=== PATIENT | male | born 1965 | race Native Hawaiian/Other Pacific Islander ===

== ENCOUNTER 2017-03-02 15:59 | Observation (INO) | payer BC ==
[2017-03-02] VITALS (30 sets, daily range): BP systolic 111–211; BP diastolic 62–129; PULSE 91–123; RESP 15–31; TEMP 97.5–98.2; O2SAT 89–95; Ht 188 cm; Wt 201.9 kg
[~2017-03-02] VITALS: Ht 188 cm; Wt 201.9 kg
[2017-03-02] MEDS ORDERED: NORMAL SALINE 1,000 ML IV ONE (16:12)
[2017-03-02] MEDS ORDERED: DILTIAZEM 25mg/5ml INJECTION IV ONE ×3 (16:15→17:15)
--- NOTE | 2017-03-02 16:23 | NUR ---
DR FOWLER IN
[2017-03-02 16:26] LABS: BASOPHILS % (AUTO) 0.2 % (0-2); EOSINOPHILS # (AUTO) 0.1 T/MM3 (0-0.5); EOSINOPHILS % (AUTO) 1.7 % (0-4); HCT - HEMATOCRIT 43.1 % (41-53); IMMATURE GRANULOCYTE # (AUTO) 0.01 T/MM3 (0.00-0.03); IMMATURE GRANULOCYTE % (AUTO) 0.1 % (0.0-0.5); INR 1.12 (0.76-1.04); LYMPHOCYTES # (AUTO) 1.6 T/MM3 (1-4.8); LYMPHOCYTES % (AUTO) 19.8 % (23-45); MEAN CORPUSCULAR HGB CONC(MCHC 32.5 GM/DL (31-37); MEAN CORPUSCULAR VOLUME 95.6 UM3 (80-100); MEAN PLATELET VOLUME 10.4 UM3 (9.4-12.4); MONOCYTES # (AUTO) 0.6 T/MM3 (0-0.8); MONOCYTES % (AUTO) 7.6 % (0-9.0); NEUTROPHILS #(AUTO)-ABSOLUTE 5.8 T/MM3 (1.8-7.7); NEUTROPHILS % (AUTO) 70.6 % (33-66); PROTHROMBIN TIME 12.2 SEC (9.31-12.49); RED BLOOD COUNT 4.51 M/MM3 (4.50-5.90); WBC - WHITE BLOOD COUNT 8.2 T/MM3 (4.5-11.0)
--- NOTE | 2017-03-02 16:27 | ERPDOC ---
Departure Disposition Decision Date: March 02, 2017 Disposition Decision Time: 17:10 Disposition: [address] [facility] [place] Impression Impression Impression: Primary Impression: Atrial fibrillation with RVR Severity: Moderate Condition: Improved Seen By: Physician only Referrals: Maxine BURGER MD (Family) Problems/Meds/Labs Reviewed?: Yes Medications reviewed and manag: Yes Follow up care ordered?: Yes Mental Status: Alert, Oriented HPI - Dyspnea General Chief Complaint: Dyspnea/Respdistress Stated Complaint: SHORTNESS OF AIR, HIGH BP Time Seen by Provider: 16:00 Source: patient Exam Limitations: no limitations HPI - Dyspnea Initial Comments 52yo man presents to the ER today with SOA. Pt has had dyspnea at rest for the last week. Was seen routinely by his PCM today and referred to the ER for HTN. Has never had sx like this before. Occurred At: home Onset/Timing: Rapid, Constant Duration: 1 week Severity: moderate Activities at Onset: none Prior Episodes/Possible Cause: no prior episodes Modifying Factors: IMPROVES WITH: lying down, rest, WORSE WITH: activity Associated Symptoms: shortness of breath Aspirin Treatment Today: 81 mg x 1, provided at home Hx of Similar Symptoms: No Allergies: Coded Allergies: No Known Allergies (Unverified , 03/02/17) Past History Past Medical History Pt denies signifigant PMH Review of Systems Constitutional Constitutional: fatigue Pulmonary Respiratory: dyspnea All other Systems All Other Systems: Reviewed and Negative Physical Exam General General Nourishment: well nourished, well developed, appears stated age, no acute distress, adult, obese (Morbid) General Body Habitus: well groomed Vitals and Pain First Documented Vital Signs Date Time Temp Pulse Resp B/P Pulse Ox O2 Delivery O2 Flow Rate FiO2 03/02/17 16:16 155 18 173/84 95 Room Air 03/02/17 16:21 98.8 Weight: Kilograms: Height (feet): Height (inches): Triage Pain Scale: RN VS reviewed by Provider: Yes Normal Exams: Head: Normocephalic w/o trauma Eyes: Pupils are PERRLA w/ EOMI, No scleral icterus, irritation ENMT: No facial trauma, nasal exudates, pharyngeal erythema Neck: Full range of motion, without adenopathy, JVD Lymphatic: No lymphadenopathy Musculoskeletal: No tenderness, or deformity noted Integumentary: No rashes, hives, or bruising noted Neurologic: Patient is alert, and oriented Psychiatric: Patient exhibits, appropriate attention Respiratory (brief) Respiratory: FOUND: clear all [place], equal bilaterally, symmetrical, NOT FOUND : rales, wheezes Cardiovascular (brief) Cardiac: NOT FOUND: click, gallop, murmur, pedal edema, peripheral edema, regular rate (tachy), regular rhythm (Irregularly irregular), rub Capillary Refill: <2 sec Pulses: all distal extremities, equal, strong Abdomen (brief) Abdominal Brief: FOUND: bowel normo active x4, soft, NOT FOUND: distended, hepatosplenomegaly, pulsatile mass, tender Differential Diagnoses Considering: Acute Bronchitis, Acute Respiratory Failure, Influenza, Pneumonia , Pneumothorax, Pulmonary Edema, Sinusitis, Viral Syndrome Progress Results/Orders Orders Procedure Category Date Status Time Cbc W/Auto LAB 03/02/17 Complete Diff-Reflex Manual 16:12 Bmp - Basic Metabolic LAB 03/02/17 Complete Panel 16:12 Probnp LAB 03/02/17 Complete 16:12 Troponin I W LAB 03/02/17 Complete Hemolysis Index 16:12 INR LAB 03/02/17 Complete 16:12 EKG EKG 03/02/17 Logged 16:12 Chest 1 View RAD 03/02/17 Resulted 16:12 Iv Lock (Ed Only) EDM 03/02/17 Transmitted 16:12 Normal Saline (Normal PHA 03/02/17 Complete Saline Iv) 16:12 Diltiazem (Cardizem*) PHA 03/02/17 Complete Iv Bolus (Cardizem 16:15 Enoxaparin (Lovenox) PHA 03/02/17 Complete 16:45 Diltiazem (Cardizem*) PHA 03/02/17 Complete Iv Bolus (Cardizem 17:15 Normal Saline (Ns) PHA 03/02/17 In Process W/Diltiazem 17:15 Place In Facility: ED ADM 03/02/17 Transmitted Lab Results Laboratory Tests Test 03/02/17 16:15 White Blood Count 8.2T/MM3 Red Blood Count 4.51M/MM3 Hemoglobin 14.0GM/DL Hematocrit 43.1% Mean Corpuscular Volume 95.6UM3 Mean Corpuscular Hemoglobin 31.0UUG Mean Corpuscular Hemoglobin Concent 32.5GM/DL RDW Standard Deviation 49.2FL Platelet Count 258T/MM3 Mean Platelet Volume 10.4UM3 Immature Granulocyte % (Auto) 0.1% Neutrophils (%) (Auto) 70.6% Lymphocytes (%) (Auto) 19.8% Monocytes (%) (Auto) 7.6% Eosinophils (%) (Auto) 1.7% Basophils (%) (Auto) 0.2% Absolute Immature Granulocyte (auto 0.01T/MM3 Absolute Neutrophils (auto) 5.8T/MM3 Absolute Lymphocytes (auto) 1.6T/MM3 Absolute Monocytes (auto) 0.6T/MM3 Absolute Eosinophils (auto) 0.1T/MM3 Absolute Basophils (auto) 0.0T/MM3 Prothromb Time International Ratio 1.12 Turbidity < 20 Sodium Level 145MEQ/L Potassium Level 4.3MEQ/L Chloride Level 106MEQ/L Carbon Dioxide Level 26MEQ/L Anion Gap 13MEQ/L Blood Urea Nitrogen 15.0MG/DL Creatinine 0.8MG/DL Glomerular Filtration Rate Calc 101 BUN/Creatinine Ratio 19RATIO Glucose Level 130MG/DL Calculated Osmolality 282MOSM/KG Calcium Level 9.0MG/DL Icterus Index < 2 Troponin I 0.013ng/ml EM-Hyh-W-Type Natriuretic Peptide 1270PG/ML Chemistry Specimen Hemolysis 29 Medications Current ED Medications Sodium Chloride (Normal Saline IV) 1,000 ml @ 0 mls/hr Q0M ONCE IV Last administered on 03/02/17 16:25; Start 03/02/17 at 16:12; Stop 03/02/17 at 16:14; Status DC Diltiazem HCl (Cardizem) 25 mg O ONCE IV ; Start 03/02/17 at 16:15; Stop at 16:16; Status Cancel Diltiazem HCl (Cardizem) 20 mg O ONCE IV Last administered on 03/02/17 16:26; Start 03/02/17 at 16:15; Stop 03/02/17 at 16:16; Status DC Enoxaparin Sodium (Lovenox) 120 mg O ONCE SQ Last administered on 03/02/17 16: 44; Start 03/02/17 at 16:45; Stop 03/02/17 at 16:46; Status DC EKG EKG : Rate: >100 Rhythm: atrial fibrillation [place]: normal QRS: non-specific block Intervals: normal ST/T: normal Interpreted by: signing physician Consult/PCP Consult/PCP : Physician Contacted: Dr. Elder Time Called: 16:57 Time of first response: 17:02 Type of discussion: Admit Discussion/PCP Discussion Details Admit to CCU for overnight obs; trend trop; start dilt drip. ESTEFANI FOWLER DO March 02, 2017 16:27
[2017-03-02 16:32] LABS: ANION GAP 13 MEQ/L (5-15); BUN/CREATININE RATIO 19 RATIO (6-26); CHLORIDE 106 MEQ/L (98-107); CO2 - CARBON DIOXIDE 26 MEQ/L (22-30); CREATININE 0.8 MG/DL (0.8-1.5); GLOMERULAR FILTRATION RATE 101; GLUCOSE 130 MG/DL (75-110); POTASSIUM 4.3 MEQ/L (3.6-5); SODIUM 145 MEQ/L (134-144)
[2017-03-02] MEDS ORDERED: ASPI-557 PO (16:32)
[2017-03-02] MEDS ORDERED: NAPR220T61 PO (16:32)
[2017-03-02 16:41] LABS: PROBNP 1270 PG/ML (0-175)
[2017-03-02] MEDS ORDERED: ENOXAPARIN 120 MG/0.8 ML INJECTION SQ ONE (16:45)
--- NOTE | 2017-03-02 17:00 | NUR ---
HR IMPROVED. MONITOR REMAINS AFIB
--- NOTE | 2017-03-02 17:16 | NUR ---
DR FOWLER IN
--- NOTE | 2017-03-02 17:17 | DI ---
Indication: ITS.REASON: Dyspnea, hypertension PROCEDURE: CHEST 1 VIEW: Encounter: Initial Comparison: July 08, 2011 Findings: Lungs are stable and grossly clear. No pleural effusion or pneumothorax. Cardiac silhouette is mild to moderately enlarged. Mediastinal contours are stable. Central pulmonary arteries are enlarged. Impression: 1. No pneumonia. 2. Enlarged cardiac silhouette could be due to cardiomegaly or pericardial effusion. 3. Enlarged central pulmonary arteries suggesting pulmonary artery hypertension. .
--- NOTE | 2017-03-02 17:21 | NUR ---
REPORT TO DIANA HAN
--- NOTE | 2017-03-02 17:40 | NUR ---
TRANSPORT PER CART ACCOMPANIED BY PAT RN TO CCU 1. CARE ASSUMED BY DIANA HAN
--- NOTE | 2017-03-02 17:40 | NUR ---
ADMISSION Arrives per cart from ED and transfers self to CCU bed without difficulty. Liter of NS started in ED is completely infused. Monitoring initiated.
[2017-03-02] MEDS ORDERED: PRN ORDERS MC (17:45)
[2017-03-02] MEDS ORDERED: MAG-AL + SIM LIQUID 30 ML UDC PO PRN (17:45)
[2017-03-02] MEDS ORDERED: BISACODYL 10 MG SUPPOSITORY RECTALLY PRN (17:45)
[2017-03-02] MEDS ORDERED: ONDANSETRON 4mg/2ml INJECTION IV PRN (17:45)
[2017-03-02] MEDS ORDERED: MILK OF MAGNESIA 30 ML SUSP PO PRN (17:45)
[2017-03-02] MEDS ORDERED: NITROGLYCERIN 0.4 MG SUBLINGUAL TABLET SL PRN (17:45)
[2017-03-02] MEDS ORDERED: ACETAMINOPHEN 325 MG TABLET PO PRN (17:45)
[2017-03-02] MEDS: DILTIAZEM 125 MG in NORMAL SALINE 125 ML IV SCH (17:46)
--- NOTE | 2017-03-02 17:53 | NUR ---
PHYSICIAN VISIT, HARLEY Charles at bedside viisting with patient at this time. Addendum: 03/02/17 at 1755 by DIANA PAEZ RN *visiting Diltiazem has been started at 10 ml/hr for rhythm of a fib rate in the 120's and BP 143/103. Sats 91% on room air. Call light and calling for assistance has been discussed with the patient, as well as the general CCU surroundings/monitoring and diltiazem drip: actions, side effects, what to expect.
[2017-03-02] MEDS ORDERED: CALCIUM CARBONATE 500mg Chewable TAB PO PRN (18:30)
[2017-03-02 18:34] LABS: ALBUMIN 3.7 G/DL (3.5-5.0); ALBUMIN/GLOBULIN RATIO 1.1 RATIO (1.1-2.2); ALKALINE PHOSPHATASE 64 U/L (38-126); ALT (SGPT) 59 U/L (21-72); AST (SGOT) 19 U/L (17-59); TOTAL PROTEIN 7.1 G/DL (6.3-8.2)
--- NOTE | 2017-03-02 18:59 | HPF ---
CHIEF COMPLAINT Shortness of breath with activity, elevated blood pressure. HISTORY OF PRESENT ILLNESS Mr. Resendiz is a 52-year-old gentleman who has been having shortness of breath with activities for the past week or so. He reports some recent cough and cold symptoms - his boss has been sick at work for the past couple of months with cough and cold and he feels he picked up some symptoms from him. With his cough at times he will produce green sputum which is hard to clear. He is not having pain with breathing or chest wall discomfort from his cough. He has not been having fevers or chills. Denies palpitations. Appetite has been stable. He had to miss work earlier this week secondary to his shortness of air and fatigue. Today he presents to clinic for evaluation. In clinic blood pressure is quite elevated and heart rate was rapid. He was sent to [facility] for further evaluation. In the emergency room EKG did reveal atrial fibrillation. Heart rate was 155. He was given IV Cardizem 20 mg which did help slow his heart rate down to 1-teens. Heart rate started to escalate again so he was given 25 mg of Cardizem. Chest x-ray was obtained showing no pneumonia but enlarged cardiac silhouette was present. In light of his new-onset atrial fibrillation, Dr. Elder was notified and patient was subsequently placed in outpatient observation status at [facility] CCU for further evaluation and treatment. PAST MEDICAL HISTORY Hypertension. Osteoarthritis. ALLERGIES No known drug allergies. MEDICATIONS Aspirin 81 mg daily. Naprosyn 220 mg with breakfast. SOCIAL HISTORY Patient is a gentleman who resides independently with two dogs. He is a nonsmoker. Rarely he will use alcohol. He works at [employer] in [place] - is very active at work. He sees Dr. Jamil for primary care. FAMILY HISTORY Mother has arthritis and has had knee replacements. She has also had diabetes and hypertension. Father of "old age." He has a brother with arthritis and knee replacements who also has had hypothyroidism. Sister had lung cancer - she was treated for cancer. She was quite obese and did have type 2 diabetes mellitus. Since weight reduction her blood sugars have improved. REVIEW OF SYSTEMS As above. GENERAL: Denies fevers, chills. Does note increased fatigue. HEENT: Vision and hearing are stable. Denies sinus pressure, congestion or drainage. Denies mouth pain. RESPIRATORY: As above. Notes cough with green sputum. Denies pain with breathing. Does note shortness of breath, worse with activities. CARDIOVASCULAR: Denies chest pressure, pain, heaviness, palpitations or cardiac irregularity. Denies neck or arm pain. Denies increased lower extremity edema. GI: Appetite stable. Denies nausea or vomiting. He does note occasional acid reflux, worse at night when he is sleeping. Bowels are stable. : Denies urinary pain, burning or blood. Does note nocturia. He reports his stream is normal and good. NEUROLOGIC: Denies unilateral weakness, numbness or slurred speech. PSYCHIATRIC: Mood is stable. SKIN: Denies new rashes or lesions. Notes chronic rash of lower extremities from a prior insect bite. ENDOCRINE: Notes fatigue. Denies excessive thirst or urination. Remainder of 10-point review of systems is discussed and negative. PHYSICAL EXAMINATION VITAL SIGNS: Height 74 inches, weight 214.4 kg. BMI 60.7. Temperature 98.8, pulse 115/ irregular, respiratory rate 18/ unlabored. Blood pressure 173/84. 95% room air saturation. GENERAL: Well-developed, well-nourished, obese gentleman who is awake and alert. He interacts appropriately. HEENT: NC/AT. PERRLA. No scleral icterus. EOMI. Mucous membranes moist. NECK: Supple without tracheal deviation or nuchal rigidity. LUNGS: Decreased breath sounds bilaterally. I am not appreciating crackles or wheeze. He breathes comfortably without distress. CARDIOVASCULAR: Irregularly irregular with rate in the low 100s. ABDOMEN: Soft, obese, nontender, nondistended. Bowel sounds are present. EXTREMITIES: No clubbing or cyanosis. +1 to 2 lower extremity edema is noted. NEUROLOGIC: Patient is awake and alert. Cranial nerves II-XII appear grossly intact. I am not appreciating focal deficits. PSYCHIATRIC: Patient is awake, alert and oriented. Thoughts are linear. He is not agitated or restless. SKIN: Warm and dry. LABORATORY White blood count is 8.2 with hemoglobin 14.0, hematocrit 43.1, MCV 95.6 and platelets 258,000. Serum sodium is 145, potassium 4.3, chloride 106, CO2 26, BUN 15 with creatinine 0.8, GFR 101 and blood glucose 130. Troponin I is 0.013. ProBNP is 1270. INR is 1.12. ASSESSMENT 1. New-onset atrial fibrillation with rapid ventricular rate. 2. Dyspnea with exertion - suspect secondary to atrial fibrillation with RVR, possible secondary to body habitus. 3. Hypernatremia (present on admission). 4. Hyperglycemia (present on admission). 5. Uncontrolled hypertension. 6. Osteoarthritis. 7. Intermittent acid reflux. 8. Morbid obesity with BMI 60.7. PLAN 1. Will place patient in outpatient observation status at [facility] CCU under the care of Dr. Elder. 2. Initiate Cardizem drip to help with heart rate control. 3. Start Lovenox 1 mg/kg subcutaneously b.i.d. for anticoagulation. 4. Consult with Dr. Zepeda for cardiac evaluation and treatment options for his atrial fibrillation. 5. Start Mucinex DM b.i.d. to help minimize cough and bronchial symptoms. 6. Initiate Protonix 40 mg p.o. daily for GI protection as well as for his acid reflux. He may have Tums as needed. 7. P.R.N. medications are okayed. 8. Check TSH in light of fatigue and atrial fibrillation. Additionally will check liver enzymes for completeness. 9. Recheck fasting BMP in a.m. to reassess blood sugar. Will also monitor his serum sodium. CBC will be rechecked in a.m. secondary to Lovenox use. 10. The patient will be FULL CODE as per his request. 11. Patient's care will be returned to Dr. Jamil at time of discharge from [facility]. SADAF
[2017-03-02] MEDS: PANTOPRAZOLE 40 MG TABLET PO SCH (19:10)
--- NOTE | 2017-03-02 19:20 | NUR ---
TRANSITION OF CARE Care transferred to RAFAEL Renteria RN after report.
[2017-03-02] MEDS: GUAIFENESIN DM 600mg/30mg TABLET PO SCH (20:58)
[2017-03-02] MEDS: ENOXAPARIN 120 MG/0.8 ML INJECTION SQ SCH (20:59)
--- NOTE | 2017-03-02 21:47 | NUR ---
HTN/ Cardizem Drip Notified Dr. Hill about patients BP being 180-200s systolic. PRN 10mg Hydralazine was ordered and administered. Cardizem drip was increased to 15 mls/hr at 2100 to keep HR below 100 bpm.
[2017-03-03] VITALS (81 sets, daily range): BP systolic 113–223; BP diastolic 59–135; PULSE 78–139; RESP 14–86; TEMP 97.2–100.1; O2SAT 88–98
[2017-03-03] MEDS: DILTIAZEM 125 MG in NORMAL SALINE 125 ML IV SCH ×2 (00:49→08:17)
--- NOTE | 2017-03-03 02:28 | NUR ---
HTN Patient continues to have BP in the 180-200s systolic even after increasing dose of Hydralazine to 20mg. Notified Dr. Hill and received an order to increase Cardizem to 20 mg/hr.
[2017-03-03] MEDS ORDERED: ENOXAPARIN 120 MG/0.8 ML INJECTION SQ SCH (05:00)
--- NOTE | 2017-03-03 06:00 | NUR ---
Shift Summary Patient has slept off and on during the night. No pain, nausea reported and only SOA reported during activities. HR has been in the 90-100s AFib throughout the night. Cardizem drip rate is currently 20 mg/hr to keep HR down and also help with lower BP. BP has been in the 170s-200s systolic with the occasion lower BP. A total of 60mg of Hydralazine was given to help control BP with little to no effect. Patient remains of RA and temp is stable. Lungs sound clear, but patient does breath heavy upon light movement. Pulse are palpated throughout. Output has been adequate and urine was orange and cloudy. Patient has had greater than 800cc of water during the night.
[2017-03-03 06:11] LABS: BASOPHILS % (AUTO) 0.1 % (0-2); EOSINOPHILS # (AUTO) 0.2 T/MM3 (0-0.5); EOSINOPHILS % (AUTO) 1.8 % (0-4); HCT - HEMATOCRIT 40.5 % (41-53); IMMATURE GRANULOCYTE # (AUTO) 0.01 T/MM3 (0.00-0.03); IMMATURE GRANULOCYTE % (AUTO) 0.1 % (0.0-0.5); LYMPHOCYTES # (AUTO) 1.6 T/MM3 (1-4.8); LYMPHOCYTES % (AUTO) 18.9 % (23-45); MEAN CORPUSCULAR HGB 30.8 UUG (26-34); MEAN CORPUSCULAR HGB CONC(MCHC 32.1 GM/DL (31-37); MEAN PLATELET VOLUME 10.8 UM3 (9.4-12.4); MONOCYTES # (AUTO) 0.7 T/MM3 (0-0.8); MONOCYTES % (AUTO) 7.9 % (0-9.0); NEUTROPHILS % (AUTO) 71.2 % (33-66); RED BLOOD COUNT 4.22 M/MM3 (4.50-5.90); WBC - WHITE BLOOD COUNT 8.5 T/MM3 (4.5-11.0)
[2017-03-03 06:22] LABS: ANION GAP 12 MEQ/L (5-15); BUN/CREATININE RATIO 14 RATIO (6-26); CALCIUM 8.7 MG/DL (8.4-10.2); CHLORIDE 105 MEQ/L (98-107); CO2 - CARBON DIOXIDE 28 MEQ/L (22-30); CREATININE 0.8 MG/DL (0.8-1.5); GLOMERULAR FILTRATION RATE 101; GLUCOSE 111 MG/DL (75-110); POTASSIUM 3.9 MEQ/L (3.6-5); SODIUM 145 MEQ/L (134-144)
[2017-03-03] MEDS: PANTOPRAZOLE 40 MG TABLET PO SCH (06:28)
--- NOTE | 2017-03-03 07:38 | NUR ---
B/P AND HR PT'S B/P THIS AM WAS 208/104. PRN HYDRALAZINE GIVEN, B/P CAME DOWN TO 113/81 AND HEART RATE REMAINED THE SAME AT 100-130. PT IS IN AFIB WITH RVR AND OCCASIONAL PVC.
[2017-03-03] MEDS: FUROSEMIDE 40 MG/4 ML INJECTION IV SCH ×2 (09:08→18:10)
[2017-03-03] MEDS: GUAIFENESIN DM 600mg/30mg TABLET PO SCH ×2 (09:08→20:54)
[2017-03-03] MEDS: LABETALOL 100 MG TABLET PO SCH ×2 (09:08→20:55)
[2017-03-03] MEDS: ENOXAPARIN 120 MG/0.8 ML INJECTION SQ SCH (09:08)
[2017-03-03] MEDS ORDERED: BISACODYL 5 MG E.C. TABLET PO PRN (09:45)
[2017-03-03] MEDS ORDERED: BISACODYL 10 MG SUPPOSITORY RECTALLY PRN (09:45)
[2017-03-03] MEDS ORDERED: NITROGLYCERIN 0.4 MG SUBLINGUAL TABLET SL PRN (09:45)
[2017-03-03] MEDS ORDERED: ACETAMINOPHEN 325 MG TABLET PO PRN (09:45)
[2017-03-03] MEDS ORDERED: LORAZEPAM 1 MG TABLET PO PRN (09:45)
[2017-03-03] MEDS ORDERED: MILK OF MAGNESIA 30 ML SUSP PO PRN (09:45)
[2017-03-03] MEDS ORDERED: LORAZEPAM 2 MG/ML INJECTION IV PRN (09:45)
[2017-03-03] MEDS ORDERED: PROMETHAZINE 25 MG INJECTION IV PRN (09:45)
[2017-03-03] MEDS ORDERED: METOCLOPRAMIDE 10mg/2ml INJECTION IV PRN (09:45)
[2017-03-03] MEDS ORDERED: MAG-AL + SIM LIQUID 30 ML UDC PO PRN (09:45)
--- NOTE | 2017-03-03 09:56 | CONSPD ---
KYRA CLARK LEGAL CASHIER 03/03/17 0916: Consultation Info Date DATE: 03/03/17 TIME: 09:10 Date of Consultation: March 02, 2017 Attending Physician: Kolton Elder MD Reason for Consultation: New onset A Fib RVR HPI - Adult Date DATE: 03/03/17 TIME: 09:10 General Date of Admission Date of Admission: March 02, 2017 at 17:07 History of Present Illness Waqar is a 52-year-old male who has been having shortness of breath with activities for the past week or so. He reports some recent cough and cold symptoms - his boss has been sick at work for the past couple of months with cough and cold and he feels he picked up some symptoms from him. With his cough at times he will produce green sputum which is hard to clear. He is not having pain with breathing or chest wall discomfort from his cough. He has not been having fevers or chills. Denies palpitations. Appetite has been stable. He had to miss work earlier this week secondary to his shortness of air and fatigue. Today he presents to clinic for evaluation. In clinic blood pressure is quite elevated and heart rate was rapid. He was sent to [facility] for further evaluation. In the ED, EKG did reveal atrial fibrillation. Heart rate was 155. He was given IV Cardizem 20 mg which did help slow his heart rate down to 1-teens. Heart rate started to escalate again so he was given 25 mg of Cardizem. Chest x-ray was obtained showing no pneumonia but enlarged cardiac silhouette was present. In light of his new-onset atrial fibrillation, Dr. Elder was notified and patient was subsequently placed in outpatient observation status at [facility] CCU for further evaluation and treatment. Dr. Lu examined the patient in his room in CCU this morning and plans to keep NPO for KISHA/DCCV this afternoon. Past Medical History Past Medical History Metabolic: hypertension Musculoskeletal: osteoarthritis Current Medications Home Meds Active Scripts Potassium Chloride (Klor-Con M20) 20 Meq Tablet, 20 MEQ PO BIDWM, #60 TAB Prov:KOLTON ELDER MD 03/04/17 Guaifenesin/Dextromethorphan (Mucinex Dm ER 600-30 mg Tablet) 1 Each Tab.er.12h , 1 TAB PO BID Y for COUGH/CONGESTION, #1 BOX Prov:KOLTON ELDER MD 03/04/17 Furosemide (Furosemide) 40 Mg Tablet, 40 MG PO BID., #40 TAB 40mg am and afternoon for 7 days, then decreasea to once a day. Prov:KOLTON ELDER MD 03/04/17 Lisinopril (Lisinopril) 20 Mg Tablet, 20 MG PO DAILY for HYPERTENSION, #30 TAB Prov:KOLTON ELDER MD 03/04/17 Amiodarone HCl (Pacerone) 200 Mg Tablet, 200 MG PO DAILY for Afib, #30 TAB Prov:KOLTON ELDER MD 03/04/17 Amiodarone HCl (Amiodarone HCl) 400 Mg Tablet, 400 MG PO BID for Afib, #14 TAB Prov:KOLTON ELDER MD 03/04/17 Labetalol HCl (Labetalol HCl) 200 Mg Tablet, 200 MG PO BID for Afib/HTN, #60 TAB Prov:KOLTON ELDER MD 03/04/17 Rivaroxaban (Xarelto) 20 Mg Tablet, 20 MG PO WS for Afib, #30 TAB Prov:KOLTON ELDER MD 03/04/17 Discontinued Reported Medications Aspirin (Aspir 81) 81 Mg Tablet.dr, 1 TAB PO DAILY, #30 TAB 5 Refills 03/02/17 Naproxen Sodium (Aleve) 220 Mg Tablet, 220 MG PO WB for PAIN, TAB Take 1 tablet, by mouth, daily with breakfast. 03/02/17 Allergies: Coded Allergies: No Known Allergies (Unverified , 03/02/17) Family History FOUND: cancer (lung-sister), diabetes, hypertension (mother), hypothyroidsim ( brother) Vaccines NONE No Social History Smoking Status: Never smoker Alcohol Intake: occasionally Marital Status: Current Occupational Status: employed Advance Directives: No DPOA for Healthcare Only Review of Systems Constitutional: REPORTS: fatigue, DENIES: chills, dizziness, fever, syncope, weakness Eyes Vision: DENIES: blurring ENMT Hearing: DENIES: tinnitus Balance: DENIES: vertigo Sinuses: NOT FOUND: rhinorrhea Mouth/Throat: DENIES: sore throat Cardiovascular dyspnea on exertion, DENIES: chest pain, murmur, orthopnea, paroxysmal nocturnal dysp Rhythm/Rate: DENIES: irregular beat, palpitations, tachycardia Vascular: DENIES: pedal edema Pulmonary Respiratory: cough, dyspnea GI Upper Abdomen: DENIES: nausea, vomiting Lower Abdomen: DENIES: blood in stool, diarrhea General: DENIES: dysuria Musculoskeletal General: DENIES: weakness Integumentary Skin: DENIES: rash, sores Neurological General: weakness, DENIES: headache, numbness, seizures, syncope All Other Systems All Other Systems: Reviewed (remainder of 10-point ROS Neg.) Physical Exam General General Nourishment: well nourished, well developed, obese, apparent age Vital Signs Vital Signs Date Time Temp Pulse Resp B/P Pulse Ox O2 Delivery O2 Flow Rate FiO2 03/03/17 07:52 130 20 03/03/17 07:37 113/81 03/03/17 07:36 98.8 93 Room Air Height (Feet): 6 Height (Inches): 2.00 Telemetry Rhythm: Atrial Fibrillation ENMT Brief: FOUND: mucosa moist Neck Brief: NOT FOUND: JVD, carotid bruits Respiratory Brief: FOUND: clear all newell, equal bilaterally, NOT FOUND: rales , wheezes Cardiovascular (brief) Cardiac Brief: FOUND: regular rate, regular rhythm, NOT FOUND: click, gallop, murmur, pedal edema Abdomen (brief) Abdominal Brief: FOUND: BS normo active x4, soft, NOT FOUND: tender Integumentary (brief) Integumentary Brief: FOUND: dry, pink, warm Neurologic RN Documented GCS Eye Opening: Verbal: Motor: Total: Psychiatric (brief) FOUND: alert, attentive, normal affect, oriented Laboratory Laboratory Tests Test 03/02/17 16:15 03/02/17 22:22 03/03/17 05:48 White Blood Count 8.2T/MM3 8.5T/MM3 Red Blood Count 4.51M/MM3 4.22M/MM3 Hemoglobin 14.0GM/DL 13.0GM/DL Hematocrit 43.1% 40.5% Mean Corpuscular Volume 95.6UM3 96.0UM3 Mean Corpuscular Hemoglobin 31.0UUG 30.8UUG Mean Corpuscular Hemoglobin Concent 32.5GM/DL 32.1GM/DL RDW Standard Deviation 49.2FL 48.7FL Platelet Count 258T/MM3 228T/MM3 Mean Platelet Volume 10.4UM3 10.8UM3 Immature Granulocyte % (Auto) 0.1% 0.1% Neutrophils (%) (Auto) 70.6% 71.2% Lymphocytes (%) (Auto) 19.8% 18.9% Monocytes (%) (Auto) 7.6% 7.9% Eosinophils (%) (Auto) 1.7% 1.8% Basophils (%) (Auto) 0.2% 0.1% Absolute Immature Granulocyte (auto 0.01T/MM3 0.01T/MM3 Absolute Neutrophils (auto) 5.8T/MM3 6.0T/MM3 Absolute Lymphocytes (auto) 1.6T/MM3 1.6T/MM3 Absolute Monocytes (auto) 0.6T/MM3 0.7T/MM3 Absolute Eosinophils (auto) 0.1T/MM3 0.2T/MM3 Absolute Basophils (auto) 0.0T/MM3 0.0T/MM3 Prothromb Time International Ratio 1.12 Turbidity < 20 < 20 Sodium Level 145MEQ/L 145MEQ/L Potassium Level 4.3MEQ/L 3.9MEQ/L Chloride Level 106MEQ/L 105MEQ/L Carbon Dioxide Level 26MEQ/L 28MEQ/L Anion Gap 13MEQ/L 12MEQ/L Blood Urea Nitrogen 15.0MG/DL 11.0MG/DL Creatinine 0.8MG/DL 0.8MG/DL Glomerular Filtration Rate Calc 101 101 BUN/Creatinine Ratio 19RATIO 14RATIO Glucose Level 130MG/DL 111MG/DL Calculated Osmolality 282MOSM/KG 279MOSM/KG Calcium Level 9.0MG/DL 8.7MG/DL Total Bilirubin 1.60MG/DL Conjugated Bilirubin 0.00MG/DL Unconjugated Bilirubin 1.00MG/DL Icterus Index < 2 < 2 Aspartate Amino Transf (AST/SGOT) 19U/L Alanine Aminotransferase (ALT/SGPT) 59U/L Alkaline Phosphatase 64U/L Troponin I 0.013ng/ml 0.014ng/ml 0.012ng/ml LZ-Xtx-I-Type Natriuretic Peptide 1270PG/ML Total Protein 7.1G/DL Albumin 3.7G/DL Globulin 3.4G/DL Albumin/Globulin Ratio 1.1RATIO Thyroid Stimulating Hormone (TSH) 2.90MIU/L Chemistry Specimen Hemolysis 29 < 15 < 15 Laboratory Tests Test 03/02/17 16:15 03/02/17 22:22 03/03/17 05:48 White Blood Count 8.2T/MM3 8.5T/MM3 Red Blood Count 4.51M/MM3 4.22M/MM3 Hemoglobin 14.0GM/DL 13.0GM/DL Hematocrit 43.1% 40.5% Mean Corpuscular Volume 95.6UM3 96.0UM3 Mean Corpuscular Hemoglobin 31.0UUG 30.8UUG Mean Corpuscular Hemoglobin Concent 32.5GM/DL 32.1GM/DL RDW Standard Deviation 49.2FL 48.7FL Platelet Count 258T/MM3 228T/MM3 Mean Platelet Volume 10.4UM3 10.8UM3 Immature Granulocyte % (Auto) 0.1% 0.1% Neutrophils (%) (Auto) 70.6% 71.2% Lymphocytes (%) (Auto) 19.8% 18.9% Monocytes (%) (Auto) 7.6% 7.9% Eosinophils (%) (Auto) 1.7% 1.8% Basophils (%) (Auto) 0.2% 0.1% Absolute Immature Granulocyte (auto 0.01T/MM3 0.01T/MM3 Absolute Neutrophils (auto) 5.8T/MM3 6.0T/MM3 Absolute Lymphocytes (auto) 1.6T/MM3 1.6T/MM3 Absolute Monocytes (auto) 0.6T/MM3 0.7T/MM3 Absolute Eosinophils (auto) 0.1T/MM3 0.2T/MM3 Absolute Basophils (auto) 0.0T/MM3 0.0T/MM3 Prothromb Time International Ratio 1.12 Turbidity < 20 < 20 Sodium Level 145MEQ/L 145MEQ/L Potassium Level 4.3MEQ/L 3.9MEQ/L Chloride Level 106MEQ/L 105MEQ/L Carbon Dioxide Level 26MEQ/L 28MEQ/L Anion Gap 13MEQ/L 12MEQ/L Blood Urea Nitrogen 15.0MG/DL 11.0MG/DL Creatinine 0.8MG/DL 0.8MG/DL Glomerular Filtration Rate Calc 101 101 BUN/Creatinine Ratio 19RATIO 14RATIO Glucose Level 130MG/DL 111MG/DL Calculated Osmolality 282MOSM/KG 279MOSM/KG Calcium Level 9.0MG/DL 8.7MG/DL Total Bilirubin 1.60MG/DL Conjugated Bilirubin 0.00MG/DL Unconjugated Bilirubin 1.00MG/DL Icterus Index < 2 < 2 Aspartate Amino Transf (AST/SGOT) 19U/L Alanine Aminotransferase (ALT/SGPT) 59U/L Alkaline Phosphatase 64U/L Troponin I 0.013ng/ml 0.014ng/ml 0.012ng/ml ET-Vax-M-Type Natriuretic Peptide 1270PG/ML Total Protein 7.1G/DL Albumin 3.7G/DL Globulin 3.4G/DL Albumin/Globulin Ratio 1.1RATIO Thyroid Stimulating Hormone (TSH) 2.90MIU/L Chemistry Specimen Hemolysis 29 < 15 < 15 EKG A Fib RVR Radiology DATE OF EXAM: 03/02/17 ORDERING DOCTOR: ESTEFNAI FOWLER DO TYPE OF EXAM: CHEST 1 VIEW REASON FOR EXAM: CP Indication: ITS.REASON: Dyspnea, hypertension PROCEDURE: CHEST 1 VIEW: Encounter: Initial Comparison: July 08, 2011 Findings: Lungs are stable and grossly clear. No pleural effusion or pneumothorax. Cardiac silhouette is mild to moderately enlarged. Mediastinal contours are stable. Central pulmonary arteries are enlarged. Impression: 1. No pneumonia. 2. Enlarged cardiac silhouette could be due to cardiomegaly or pericardial effusion. 3. Enlarged central pulmonary arteries suggesting pulmonary artery hypertension. Impression/Recommendation Problems: (1) Atrial fibrillation with RVR Status: Acute Assessment & Plan: NPO for KISHA/ DCCV this afternoon. Check Mag, TSH normal. Start Labetalol 200mg BID, Stop Cardizem 1 hour after Labetalol is given. Echo report pending. (2) Essential (primary) hypertension Status: Chronic Assessment & Plan: Continue Hydralazine for BP PRN. Lasix 40mg IV Q8H with K+ 20meq TID. (3) Osteoarthritis Status: Chronic Assessment & Plan: Regular strength Tylenol PRN Recommendation A Fib RVR: NPO for KISHA/ DCCV this afternoon. Check Mag, TSH normal. Start Labetalol 200mg BID, Stop Cardizem 1 hour after Labetalol is given. Echo report pending. HTN:Continue Hydralazine for BP PRN. Lasix 40mg IV Q8H with K+ 20meq TID. Thank vivian brown for allowing us to participate in this patient's care. BETHANIE LU MD 03/10/17 1009: Past Medical History Current Medications Home Meds Active Scripts Potassium Chloride (Klor-Con M20) 20 Meq Tablet, 20 MEQ PO BIDWM, #60 TAB Prov:KOLTON ELDER MD 03/04/17 Guaifenesin/Dextromethorphan (Mucinex Dm ER 600-30 mg Tablet) 1 Each Tab.er.12h , 1 TAB PO BID Y for COUGH/CONGESTION, #1 BOX Prov:KOLTON ELDER MD 03/04/17 Furosemide (Furosemide) 40 Mg Tablet, 40 MG PO BID., #40 TAB 40mg am and afternoon for 7 days, then decreasea to once a day. Prov:KOLTON ELDER MD 03/04/17 Lisinopril (Lisinopril) 20 Mg Tablet, 20 MG PO DAILY for HYPERTENSION, #30 TAB Prov:KOLTON ELDER MD 03/04/17 Amiodarone HCl (Pacerone) 200 Mg Tablet, 200 MG PO DAILY for Afib, #30 TAB Prov:KOLTON ELDER MD 03/04/17 Amiodarone HCl (Amiodarone HCl) 400 Mg Tablet, 400 MG PO BID for Afib, #14 TAB Prov:KOLTON ELDER MD 03/04/17 Labetalol HCl (Labetalol HCl) 200 Mg Tablet, 200 MG PO BID for Afib/HTN, #60 TAB Prov:KOLTON ELDER MD 03/04/17 Rivaroxaban (Xarelto) 20 Mg Tablet, 20 MG PO WS for Afib, #30 TAB Prov:KOLTON ELDER MD 03/04/17 Discontinued Reported Medications Aspirin (Aspir 81) 81 Mg Tablet.dr, 1 TAB PO DAILY, #30 TAB 5 Refills 03/02/17 Naproxen Sodium (Aleve) 220 Mg Tablet, 220 MG PO WB for PAIN, TAB Take 1 tablet, by mouth, daily with breakfast. 03/02/17 Allergies: Coded Allergies: No Known Allergies (Unverified , 03/02/17) Impression/Recommendation Recommendation After examining the patient I agree with the above assessment. I am involved in the formulation of the patient's plan of care. KYRA CLARK APRN March 03, 2017 09:16 BETHANIE LU MD March 10, 2017 10:09
[2017-03-03] MEDS: POTASSIUM CHLORIDE 20 MEQ TABLET PO SCH ×3 (10:07→18:10)
--- NOTE | 2017-03-03 10:24 | NUR ---
MARKO ZHU VISITED PT. CM EXPLAINED ROLE AND PROVIDED CONTACT INFORMATION. PT PLANS TO RETURN HOME POST STAY AT [facility] [place] [facility] [place]. PT DENIES NEEDS. PT IS AWARE TO CONTACT CM IF NEEDS ARISE.
[2017-03-03] MEDS ORDERED: AMIODARONE 150 MG in NORMAL SALINE 100 ML IV ONE (13:15)
[2017-03-03] MEDS ORDERED: RIVAROXABAN 20 MG TABLET PO SCH (13:15)
[2017-03-03] MEDS: AMIODARONE 200 MG TABLET PO SCH ×2 (13:59→20:55)
--- NOTE | 2017-03-03 16:09 | PNPDOC ---
Subjective Date DATE: 03/03/17 TIME: 15:41 Subjective F/U: Afib with RVR Doing well this afternoon. Tolerated KISHA/Cardioversion. No chest pain. Throat slightly sore from KISHA. Breathing well-not SOA, but not up much post cardioversion. No cough. Denies nausea or ab pain. Objective Vital Signs Vital signs Vital Signs Date Time Temp Pulse Resp B/P Pulse Ox O2 Delivery O2 Flow Rate FiO2 03/03/17 14:40 88 22 190/107 95 Room Air 03/03/17 13:40 2.00 03/03/17 07:36 98.8 Telemetry Rhythm: Atrial Fibrillation Height (Feet): 6 Height (Inches): 2.00 Weight (Kilograms): 217.000 General General Appearance: Alert, Obese, Orientated x 3, Well Nourished, Well Developed, Cooperative, Looks Stated Age Eyes (Brief) Eyes: FOUND: EOMI, PERRL, NOT FOUND: scleral icterus ENMT (Brief) ENMT: FOUND: hearing intact, mucosa moist Neck (Brief) Neck: FOUND: midline, NOT FOUND: nuchal rigidity, spasm Respiratory (Brief) Respiratory: FOUND: clear all newell, equal bilaterally, NOT FOUND: rales, wheezes Cardiovascular (Brief) Cardiac: FOUND: regular rate, regular rhythm Abdomen (Brief) Abdominal: FOUND: BS normo active x4, soft, NOT FOUND: distended, tender Extremities (Brief) Extremity : Side: Bilateral Extremity: leg Extremity Finding: FOUND: edema Musculoskeletal (Brief) Musculoskeletal: FOUND: extremities move equally, NOT FOUND: deformity, loss of motion, spasm, tenderness Neurologic (Brief) Neurological: FOUND: cranial 2-12 intact, motor (Intact ) Psychiatric (Brief) Psychiatric: FOUND: alert, attentive, normal affect, oriented Laboratory Laboratory Laboratory Tests 03/02/17 16:15 03/03/17 05:48 Laboratory Tests 03/02/17 16:15 03/03/17 05:48 Assessment & Plan Problems: (1) Atrial fibrillation with RVR Status: Acute Assessment & Plan: 03/03 KISHA/Cardioversion (2) Dyspnea on exertion Status: Acute (3) Hyperglycemia Status: Acute (4) Essential (primary) hypertension Status: Chronic (5) Osteoarthritis Status: Chronic Qualifiers: Osteoarthritis location: multiple joints Osteoarthritis type: primary Qualified Codes: M15.0 - Primary generalized (osteo)arthritis (6) Morbid obesity Status: Chronic Qualifiers: Obesity type: due to excess calories Qualified Codes: E66.01 - Morbid ( severe) obesity due to excess calories Plan/Intensity of Service Successful KISHA/Cardioversion - Amiodarone start to help maintain NSR. Xarelto started for anticoagulation - Lovenox stopped. Home ASA not restarted. Lasix initiated to help motivate fluids. Will continue monitoring on tele due to potential for arrhythmias due to amiodarone. Case discussed with CM and Cardiology. DVT Prophylaxis: Xarelto Code Status Full Code Hospital Course Summary Disclaimer The hospital course summary below is not to be considered part of the above Progress Note. Hospital Course Summary 03/[address] patient in outpatient observation status at [facility] CCU under the care of Dr. Elder. Initiate Cardizem drip to help with heart rate control. Start Lovenox 1 mg/kg subcutaneously b.i.d. for anticoagulation. Consult with Dr. Zepeda for cardiac evaluation and treatment options for his atrial fibrillation. Start Mucinex DM b.i.d. to help minimize cough and bronchial symptoms. Initiate Protonix 40 mg p.o. daily for GI protection as well as for his acid reflux. He may have Tums as needed. P.R.N. medications are okayed. Check TSH in light of fatigue and atrial fibrillation. Additionally will check liver enzymes for completeness. Recheck fasting BMP in a.m. to reassess blood sugar. Will also monitor his serum sodium. CBC will be rechecked in a.m. secondary to Lovenox use. The patient will be FULL CODE as per his request. Patient's care will be returned to Dr. Jamil at time of discharge from [facility]. / Doing well this afternoon. Tolerated KISHA/Cardioversion. No chest pain. Throat slightly sore from KISHA. Breathing well-not SOA, but not up much post cardioversion. No cough. Denies nausea or ab pain. Successful KISHA/Cardioversion - Amiodarone start to help maintain NSR. Xarelto started for anticoagulation - Lovenox stopped. Home ASA not restarted. Lasix initiated to help motivate fluids. Will continue monitoring on tele due to potential for arrhythmias due to amiodarone. JUAN MIGUEL ELDER MD March 03, 2017 15:45
--- NOTE | 2017-03-03 17:42 | NUR ---
CARDIOVERSION/SHIFT PT HAS BEEN PLEASANT AND COOPERATIVE ALL SHIFT. PT IS A&OX3, UP WITH NO ASSIST, LOW FALL. PT DENIES PAIN, N/V AND SOA. PT IS ON ROOM AIR. PT HAS HAD MULTIPLE DOSES OF PRN HYDRALAZINE FOR ELEVATED BP. SEE eMAR. PT HAD A KISHA AND CARDIOVERSION THIS SHIFT. GAVE PT 10 OF VERSED AND 75 OF FENTANYL THROUGHOUT PROCEDURE. ONE SHOCK AT 360J AND PT RETURNED TO SINUS RHYTHM. PT IS FULLY AWAKE, EATING AND DRINKING, AMBULATING TO BATHROOM AND DENIES PAIN. SKIN WNL WHERE PATCHES WERE. PT REPORTS HE DOESN'T REMEMBER THE PROCEDURE. NO OTHER CHANGES. PT RESTING IN BED AT THIS TIME.
[2017-03-03] MEDS ORDERED: FENTANYL 100mcg/2ml INJECTION IV ONE (17:53)
[2017-03-03] MEDS ORDERED: MIDAZOLAM 2mg/2ml INJECTION IV ONE (17:53)
[2017-03-03] MEDS ORDERED: LISINOPRIL 20 MG TABLET PO ONE (18:45)
--- NOTE | 2017-03-03 19:48 | TEEF ---
DATE OF PROCEDURE March 03, 2017 This is a 52-year-old gentleman who was admitted with symptomatic atrial fibrillation and congestive heart failure. The atrial fibrillation is of unknown duration and he was referred for further evaluation by transesophageal echocardiogram and possible cardioversion. Informed consent was obtained after explaining the procedure and the potential risks to the patient who agreed to proceed with the procedure. PROCEDURE 1. Transesophageal echocardiogram. 2. DC cardioversion. TECHNIQUE Conscious sedation was performed using Versed and fentanyl. Cetacaine spray was used for pharyngeal anesthesia. Probe was advanced into the esophagus and stomach and images were obtained in multiple planes. Left atrium is dilated. Left ventricular end-diastolic dimension is normal. Left ventricular wall thickness is normal. LV systolic function is reduced with global hypokinesia with ejection fraction of about 30%-35%. Right atrium is dilated. Right ventricle is normal. Aortic root dimension is normal. There is no thrombus in left atrium, left atrial appendage or left ventricle. Mitral valve is morphologically normal with mild mitral regurgitation. Aortic valve is a trileaflet structure with no stenosis or insufficiency. Tricuspid valve appears to be normal morphologically. Pulmonary valve shows trace of pulmonary insufficiency. There is no pericardial effusion. Agitated saline was injected which showed small patent foramen ovale with few bubbles crossing the interatrial septum. Descending thoracic aorta appears to be free of significant atherosclerosis. IMPRESSION 1. Biatrial dilation. 2. Global hypokinesia with ejection fraction of about 30%-35%. 3. No intracardiac thrombus or mass. 4. Mild mitral regurgitation. 5. Patent foramen ovale. After reviewing the images we decided to proceed with cardioversion. Anterior-posterior Zoll pads were applied. 360 joules of energy were delivered in synchronized manner and patient converted from atrial fibrillation to sinus rhythm. He tolerated the procedure well with no complications. IMPRESSION Successful DC cardioversion of atrial fibrillation to sinus rhythm. PLAN Will keep him on antiarrhythmics to maintain sinus and keep him on anticoagulation. [facility]
--- NOTE | 2017-03-03 20:03 | NUR ---
Pt is in bed watching TV. Sats are dropping to 87%. Pt states he hasn't had trouble like that at all since in the hospital. Lungs are CTA. Pt incouraged to take deep breaths and pull himself up in bed. Sats come up to 93% for a short time but then start to drop again.
--- NOTE | 2017-03-03 20:28 | ECHOF ---
DATE OF PROCEDURE March 03, 2017 This is a two-dimensional echo with spectral Doppler, color-flow and M-mode. It was obtained in a patient with atrial fibrillation. This is a technically very difficult study and limited information can be obtained from this echo due to patient's body habitus. Left atrium appears to be dilated. Left ventricle end-diastolic dimension is normal. Left ventricle wall thickness is increased. LV systolic function cannot be adequately assessed - however, it appears to be reduced with ejection fraction in the range of 40% since all canchola were not visualized. Right atrium is dilated. Right ventricle is normal. Aortic root is mildly dilated. Mitral valve appears to be normal with mild mitral regurgitation. Aortic valve was not visualized well. Doppler studies indicate no stenosis or insufficiency. Tricuspid valve shows mild tricuspid regurgitation with moderate pulmonary hypertension with estimated pulmonary artery systolic pressure of 46. Pulmonary valve was not visualized. There is no pericardial effusion. IMPRESSION 1. Technically very difficult study due to patient's body habitus. 2. Ejection fraction about 40%. However, all canchola were not visualized. 3. Mild mitral regurgitation. 4. Mild tricuspid regurgitation with moderate pulmonary hypertension with estimated pulmonary artery systolic pressure of 46. 5. Left ventricular hypertrophy. 6. Left atrial dilation. 7. Aortic root dilation. 8. Right atrial dilation. MTDD
--- NOTE | 2017-03-03 22:50 | NUR ---
Pt has had sats in the 80's more frequently. O2 started at 3L per NC.
[2017-03-04] VITALS (22 sets, daily range): BP systolic 115–173; BP diastolic 58–114; PULSE 69–87; RESP 13–51; TEMP 98.6–99.5; O2SAT 85–96
[2017-03-04] MEDS: FUROSEMIDE 40 MG/4 ML INJECTION IV SCH ×2 (00:08→08:33)
--- NOTE | 2017-03-04 00:12 | NUR ---
Pt sats have been in the mid to high 90's. O2 decreased to 2L.
[2017-03-04 05:06] LABS: BASOPHILS % (AUTO) 0.3 % (0-2); EOSINOPHILS # (AUTO) 0.1 T/MM3 (0-0.5); EOSINOPHILS % (AUTO) 1.6 % (0-4); HCT - HEMATOCRIT 39.6 % (41-53); HGB - HEMOGLOBIN 12.6 GM/DL (13.5-17.5); IMMATURE GRANULOCYTE # (AUTO) 0.01 T/MM3 (0.00-0.03); IMMATURE GRANULOCYTE % (AUTO) 0.1 % (0.0-0.5); LYMPHOCYTES # (AUTO) 1.1 T/MM3 (1-4.8); LYMPHOCYTES % (AUTO) 15.1 % (23-45); MEAN CORPUSCULAR HGB 30.7 UUG (26-34); MEAN CORPUSCULAR HGB CONC(MCHC 31.8 GM/DL (31-37); MEAN CORPUSCULAR VOLUME 96.4 UM3 (80-100); MEAN PLATELET VOLUME 10.7 UM3 (9.4-12.4); MONOCYTES # (AUTO) 0.8 T/MM3 (0-0.8); MONOCYTES % (AUTO) 11.1 % (0-9.0); NEUTROPHILS #(AUTO)-ABSOLUTE 5.1 T/MM3 (1.8-7.7); NEUTROPHILS % (AUTO) 71.8 % (33-66); RED BLOOD COUNT 4.11 M/MM3 (4.50-5.90); WBC - WHITE BLOOD COUNT 7.1 T/MM3 (4.5-11.0)
[2017-03-04 05:17] LABS: ANION GAP 12 MEQ/L (5-15); BUN/CREATININE RATIO 10 RATIO (6-26); CALCIUM 8.7 MG/DL (8.4-10.2); CHLORIDE 103 MEQ/L (98-107); CO2 - CARBON DIOXIDE 30 MEQ/L (22-30); GLOMERULAR FILTRATION RATE 78; GLUCOSE 115 MG/DL (75-110); POTASSIUM 3.8 MEQ/L (3.6-5); SODIUM 145 MEQ/L (134-144)
[2017-03-04] MEDS: PANTOPRAZOLE 40 MG TABLET PO SCH (06:19)
[2017-03-04] MEDS: AMIODARONE 200 MG TABLET PO SCH (08:32)
[2017-03-04] MEDS: GUAIFENESIN DM 600mg/30mg TABLET PO SCH (08:33)
[2017-03-04] MEDS: POTASSIUM CHLORIDE 20 MEQ TABLET PO SCH ×2 (08:33→14:33)
[2017-03-04] MEDS: LABETALOL 100 MG TABLET PO SCH (08:55)
[2017-03-04] MEDS ORDERED: LISINOPRIL 20 MG TABLET PO SCH (09:00)
--- NOTE | 2017-03-04 13:54 | PNPDOC ---
KRYA CLARK [employer] 03/04/17 1342: Subjective Date DATE: 03/04/17 TIME: 13:37 Jaqueline Zavaleta is seen this morning in his room in CCU. He states he remember the KISHA beginning but nothing afterwards. He denies chest pain or pressure, dyspnea or other complaints Objective Vital Signs Vital signs Vital Signs 03/04/17 03/04/17 03/04/17 03/04/17 02:00 03:00 04:00 04:00 Pulse 77 80 78 84 Resp 30 16 18 B/P 140/82 153/79 149/68 Pulse Ox 92 93 94 03/04/17 03/04/17 03/04/17 03/04/17 05:00 06:00 07:00 08:00 Temp 99.5 Pulse 79 75 74 80 Resp 18 16 13 16 B/P 154/77 173/81 162/75 158/84 Pulse Ox 93 94 94 89 O2 Delivery Room Air 03/04/17 08:21 Pulse 80 Resp 16 Telemetry Rhythm: Sinus Rhythm Height (Feet): 6 Height (Inches): 2.00 Weight (Kilograms): 201.900 General Alert, Obese, Orientated x 3, Cooperative, No Acute Distress ENMT (Brief) mucosa moist Neck (Brief) NOT FOUND: JVD, carotid bruits Respiratory (Brief) clear all newell, equal bilaterally, NOT FOUND: rales, wheezes Cardiovascular (Brief) pedal edema (trace), regular rate, regular rhythm, NOT FOUND: click, gallop, murmur, rub Abdomen (Brief) BS normo active x4, soft Integumentary (Brief) dry, pink, warm Psychiatric (Brief) alert, oriented Laboratory Laboratory Laboratory Tests Test 03/02/17 16:15 03/02/17 22:22 03/03/17 05:48 03/04/17 04:40 White Blood Count 8.2T/MM3 8.5T/MM3 7.1T/MM3 Red Blood Count 4.51M/MM3 4.22M/MM3 4.11M/MM3 Hemoglobin 14.0GM/DL 13.0GM/DL 12.6GM/DL Hematocrit 43.1% 40.5% 39.6% Mean Corpuscular Volume 95.6UM3 96.0UM3 96.4UM3 Mean Corpuscular Hemoglobin 31.0UUG 30.8UUG 30.7UUG Mean Corpuscular Hemoglobin Concent 32.5GM/DL 32.1GM/DL 31.8GM/DL RDW Standard Deviation 49.2FL 48.7FL 50.6FL Platelet Count 258T/MM3 228T/MM3 233T/MM3 Mean Platelet Volume 10.4UM3 10.8UM3 10.7UM3 Immature Granulocyte % (Auto) 0.1% 0.1% 0.1% Neutrophils (%) (Auto) 70.6% 71.2% 71.8% Lymphocytes (%) (Auto) 19.8% 18.9% 15.1% Monocytes (%) (Auto) 7.6% 7.9% 11.1% Eosinophils (%) (Auto) 1.7% 1.8% 1.6% Basophils (%) (Auto) 0.2% 0.1% 0.3% Absolute Immature Granulocyte (auto 0.01T/MM3 0.01T/MM3 0.01T/MM3 Absolute Neutrophils (auto) 5.8T/MM3 6.0T/MM3 5.1T/MM3 Absolute Lymphocytes (auto) 1.6T/MM3 1.6T/MM3 1.1T/MM3 Absolute Monocytes (auto) 0.6T/MM3 0.7T/MM3 0.8T/MM3 Absolute Eosinophils (auto) 0.1T/MM3 0.2T/MM3 0.1T/MM3 Absolute Basophils (auto) 0.0T/MM3 0.0T/MM3 0.0T/MM3 Prothromb Time International Ratio 1.12 Turbidity < 20 < 20 < 20 Sodium Level 145MEQ/L 145MEQ/L 145MEQ/L Potassium Level 4.3MEQ/L 3.9MEQ/L 3.8MEQ/L Chloride Level 106MEQ/L 105MEQ/L 103MEQ/L Carbon Dioxide Level 26MEQ/L 28MEQ/L 30MEQ/L Anion Gap 13MEQ/L 12MEQ/L 12MEQ/L Blood Urea Nitrogen 15.0MG/DL 11.0MG/DL 10.0MG/DL Creatinine 0.8MG/DL 0.8MG/DL 1.0MG/DL Glomerular Filtration Rate Calc 101 101 78 BUN/Creatinine Ratio 19RATIO 14RATIO 10RATIO Glucose Level 130MG/DL 111MG/DL 115MG/DL Calculated Osmolality 282MOSM/KG 279MOSM/KG 279MOSM/KG Calcium Level 9.0MG/DL 8.7MG/DL 8.7MG/DL Total Bilirubin 1.60MG/DL Conjugated Bilirubin 0.00MG/DL Unconjugated Bilirubin 1.00MG/DL Icterus Index < 2 < 2 < 2 Aspartate Amino Transf (AST/SGOT) 19U/L Alanine Aminotransferase (ALT/SGPT) 59U/L Alkaline Phosphatase 64U/L Troponin I 0.013ng/ml 0.014ng/ml 0.012ng/ml [id number] Natriuretic Peptide 1270PG/ML Total Protein 7.1G/DL Albumin 3.7G/DL Globulin 3.4G/DL Albumin/Globulin Ratio 1.1RATIO Thyroid Stimulating Hormone (TSH) 2.90MIU/L Chemistry Specimen Hemolysis 29 < 15 < 15 < 15 Magnesium Level 1.9MG/DL 2.0MG/DL Laboratory Tests 03/04/17 04:40 Laboratory Tests 03/04/17 04:40 EKG SR, QT/QTc 423/456 Medications Current Medications Sodium Chloride (Normal Saline IV) 1,000 ml @ 0 mls/hr Q0M ONCE IV Last administered on 03/02/17 16:25; Start 03/02/17 at 16:12; Stop 03/02/17 at 16:14; Status DC Diltiazem HCl (Cardizem) 20 mg O ONCE IV Last administered on 03/02/17 16:26; Start 03/02/17 at 16:15; Stop 03/02/17 at 16:16; Status DC Diltiazem HCl 25 mg 25 mg O ONCE IV Last administered on 03/02/17 17:14; Start 03/02/17 at 17:15; Stop 03/02/17 at 17:16; Status DC Diltiazem HCl/ Sodium Chloride (Cardizem 125 Mg/ 25 ml Injection/ NS) 125 ml @ 10 mls/hr [id number] IV Last administered on 03/03/17 08:17; Start 03/02/17 at 17: 15; Stop 03/03/17 at 14:09; Status DC Ondansetron HCl (Zofran) 4 mg Q6H PRN IV NAUSEA; Start 03/02/17 at 17:45 Miscellaneous Medication (May use PRN orders) PRN PRN MC ; Start 03/02/17 at 17 :45 Pantoprazole Sodium (Protonix) 40 mg ACB PO Last administered on 03/04/17 06:19 ; Start 03/02/17 at 18:30 Guaifenesin/ Dextromethorphan (Mucinex Dm 600/ 30 Mg Tablet) 1 tab BID PO Last administered on 03/04/17 08:33; Start 03/02/17 at 21:00 Calcium Carbonate (TUMS Regular Strength) 1,000 mg PRN PRN PO REFLUX; Start 03/02/17 at 18:30 Enoxaparin Sodium (Lovenox) 217 mg 05,17 SQ ; Start 03/03/17 at 05:00; Status Cancel Hydralazine HCl (Apresoline) 30 mg O ONCE IV Last administered on 03/03/17 03: 30; Start 03/03/17 at 03:30; Stop 03/03/17 at 06:10; Status DC Labetalol HCl (Normodyne) 200 mg BID PO Last administered on 03/04/17 08:55; Start 03/03/17 at 09:00 Acetaminophen (Tylenol Regular Strength) 325-650 mg po every 5 hrs ... Q5H PRN PO PAIN Last administered on 03/03/17 18:46; Start 03/03/17 at 09:45 Promethazine HCl (Phenergan) 12.5 mg to 25 mg IV q6h ... Q6H PRN IV NAUSEA; Start 03/03/17 at 09:45 Nitroglycerin (Nitrostat) 0.4 mg Q5MIN PRN SL CHEST PAIN; Start 03/03/17 at 09: 45 Magnesium Hydroxide (Mom) 30 ml DAILY PRN PO CONSTIPATION; Start 03/03/17 at 09: 45; Stop 03/03/17 at 13:40; Status DC Bisacodyl (Dulcolax) 5-10 mg PO PRN constipation DAILY PRN PO CONSTIPATION; Start 03/03/17 at 09:45 Al Hydroxide/Mg Hydroxide (Maalox) 30 ml Q3-4H PRN PO INDIGESTION; Start at 09:45; Stop 03/03/17 at 13:36; Status DC Lorazepam (Ativan) 0.5-1 mg IV Q4H PRN IV ; Start 03/03/17 at 09:45 Metoclopramide HCl (REGLAN Inj) 5-10 mg IV every 6 hrs PRN naus... Q6H PRN IV NAUSEA &/OR VOMITING; Start 03/03/17 at 09:45 Potassium Chloride 20 meq 20 meq TIDWM PO Last administered on 03/04/17 08:33; Start 03/03/17 at 09:45 Amiodarone HCl/ Sodium Chloride (Amiodarone/NS) 103 ml @ 600 mls/hr NOW ONCE IV Last administered on 03/03/17 13:59; Start 03/03/17 at 13:15; Stop 03/03/17 at 13:33; Status DC Amiodarone HCl (Pacerone) 400 mg BID PO Last administered on 03/04/17 08:32; Start 03/03/17 at 13:15 Rivaroxaban (Xarelto) 20 mg WS PO Last administered on 03/03/17 13:59; Start at 13:15 Fentanyl (Fentanyl) 100 mcg STK-MED ONCE IV ; Start 03/03/17 at 17:53; Stop at 17:54; Status DC Midazolam HCl (Versed) 8 mg STK-MED ONCE IV ; Start 03/03/17 at 17:53; Stop at 17:54; Status DC Lisinopril (Prinivil) 20 mg O ONCE PO Last administered on 03/03/17 18:45; Start 03/03/17 at 18:45; Stop 03/03/17 at 18:46; Status DC Furosemide (Lasix) 40 mg DAILY PO ; Start 03/11/17 at 09:00; Status UNV Radiology DATE OF PROCEDURE March 03, 2017 This is a two-dimensional echo with spectral Doppler, color-flow and M-mode. It was obtained in a patient with atrial fibrillation. This is a technically very difficult study and limited information can be obtained from this echo due to patient's body habitus. Left atrium appears to be dilated. Left ventricle end-diastolic dimension is normal. Left ventricle wall thickness is increased. LV systolic function cannot be adequately assessed - however, it appears to be reduced with ejection fraction in the range of 40% since all canchola were not visualized. Right atrium is dilated. Right ventricle is normal. Aortic root is mildly dilated. Mitral valve appears to be normal with mild mitral regurgitation. Aortic valve was not visualized well. Doppler studies indicate no stenosis or insufficiency. Tricuspid valve shows mild tricuspid regurgitation with moderate pulmonary hypertension with estimated pulmonary artery systolic pressure of 46. Pulmonary valve was not visualized. There is no pericardial effusion. IMPRESSION 1. Technically very difficult study due to patient's body habitus. 2. Ejection fraction about 40%. However, all canchola were not visualized. 3. Mild mitral regurgitation. 4. Mild tricuspid regurgitation with moderate pulmonary hypertension with estimated pulmonary artery systolic pressure of 46. 5. Left ventricular hypertrophy. 6. Left atrial dilation. 7. Aortic root dilation. 8. Right atrial dilation. DATE OF PROCEDURE March 03, 2017 This is a 52-year-old gentleman who was admitted with symptomatic atrial fibrillation and congestive heart failure. The atrial fibrillation is of unknown duration and he was referred for further evaluation by transesophageal echocardiogram and possible cardioversion. Informed consent was obtained after explaining the procedure and the potential risks to the patient who agreed to proceed with the procedure. PROCEDURE 1. Transesophageal echocardiogram. 2. DC cardioversion. TECHNIQUE Conscious sedation was performed using Versed and fentanyl. Cetacaine spray was used for pharyngeal anesthesia. Probe was advanced into the esophagus and stomach and images were obtained in multiple planes. Left atrium is dilated. Left ventricular end-diastolic dimension is normal. Left ventricular wall thickness is normal. LV systolic function is reduced with global hypokinesia with ejection fraction of about 30%-35%. Right atrium is dilated. Right ventricle is normal. Aortic root dimension is normal. There is no thrombus in left atrium, left atrial appendage or left ventricle. Mitral valve is morphologically normal with mild mitral regurgitation. Aortic valve is a trileaflet structure with no stenosis or insufficiency. Tricuspid valve appears to be normal morphologically. Pulmonary valve shows trace of pulmonary insufficiency. There is no pericardial effusion. Agitated saline was injected which showed small patent foramen ovale with few bubbles crossing the interatrial septum. Descending thoracic aorta appears to be free of significant atherosclerosis. IMPRESSION 1. Biatrial dilation. 2. Global hypokinesia with ejection fraction of about 30%-35%. 3. No intracardiac thrombus or mass. 4. Mild mitral regurgitation. 5. Patent foramen ovale. After reviewing the images we decided to proceed with cardioversion. Anterior- posterior Zoll pads were applied. 360 joules of energy were delivered in synchronized manner and patient converted from atrial fibrillation to sinus rhythm. He tolerated the procedure well with no complications. IMPRESSION Successful DC cardioversion of atrial fibrillation to sinus rhythm. PLAN Will keep him on antiarrhythmics to maintain sinus and keep him on anticoagulation. Assessment & Plan Problems: (1) Atrial fibrillation with RVR Status: Acute Assessment & Plan: Continue Amiodarone 400mg BID X 7Days, then 200mg daily. Xarelto samples and discount card given. (2) Essential (primary) hypertension Status: Chronic Assessment & Plan: Labetalol 200mg, Lisinopril 20mg daily, and Lasix 40mg PO BID for 1 week then daily, BMP & Mag in 1 week (3) Osteoarthritis Status: Chronic Qualifiers: Osteoarthritis location: multiple joints Osteoarthritis type: primary Qualified Codes: M15.0 - Primary generalized (osteo)arthritis Assessment & Plan: Regular strength Tylenol PRN Plan/Intensity of Service 03/03/17 AFIB: NPO for KISHA/ DCCV this afternoon. Check Mag, TSH normal. Start Labetalol 200mg BID, Stop Cardizem 1 hour after Labetalol is given. Echo report pending. HTN: Continue Hydralazine for BP PRN. Lasix 40mg IV Q8H with K+ 20meq TID. 03/04/17 Continue Amiodarone 400mg BID X 7Days, then 200mg daily. Xarelto samples and discount card given. Labetalol 200mg, Lisinopril 20mg daily, and Lasix 40mg PO BID for 1 week then daily, BMP & Mag in 1 week. Follow up with Dr. Lu on 03/18/17 as scheduled BETHANIE LU MD 03/10/17 1014: Assessment & Plan Plan/Intensity of Service After examining the patient I agree with the above assessment. I am involved in the formulation of the patient's plan of care. KYRA CLARK APRN March 04, 2017 13:42 BETHANIE LU MD March 10, 2017 10:14
[2017-03-04] MEDS ORDERED: AMIO200T7 PO (13:56)
[2017-03-04] MEDS ORDERED: RIVA20TA PO (13:56)
[2017-03-04] MEDS ORDERED: LISI-621 PO (13:56)
[2017-03-04] MEDS ORDERED: GUAI-782 PO (13:56)
[2017-03-04] MEDS ORDERED: LABE200T PO (13:56)
[2017-03-04] MEDS ORDERED: FURO40TA5 PO (13:56)
[2017-03-04] MEDS ORDERED: AMIO400T3 PO (13:56)
[2017-03-04] MEDS ORDERED: POTA20TA10 PO (13:56)
--- NOTE | 2017-03-04 13:59 | PNPDOC ---
Subjective Date DATE: 03/04/17 TIME: 13:43 Subjective F/U: Afib with RVR Doing well. Breathing better-not having the cough like before presentation. No chest pressure or pain. Eating well. Not dizzy or unsteady when up. Objective Vital Signs Vital signs Vital Signs Date Time Temp Pulse Resp B/P Pulse Ox O2 Delivery O2 Flow Rate FiO2 03/04/17 08:21 80 16 03/04/17 08:00 99.5 158/84 89 Room Air 03/03/17 21:42 2.00 Telemetry Rhythm: Atrial Fibrillation Height (Feet): 6 Height (Inches): 2.00 Weight (Kilograms): 201.900 General General Appearance: Alert, Obese, Orientated x 3, Well Nourished, Well Developed, Cooperative, No Acute Distress, Looks Stated Age Eyes (Brief) Eyes: FOUND: EOMI, PERRL, NOT FOUND: scleral icterus ENMT (Brief) ENMT: FOUND: hearing intact, mucosa moist Neck (Brief) Neck: FOUND: midline, NOT FOUND: nuchal rigidity, spasm Respiratory (Brief) Respiratory: FOUND: clear all newell (Decreased, no crackles or wheezes ), equal bilaterally, NOT FOUND: rales, wheezes Cardiovascular (Brief) Cardiac: FOUND: pedal edema (+2 ), regular rate, regular rhythm Abdomen (Brief) Abdominal: FOUND: BS normo active x4, soft, NOT FOUND: distended, tender Extremities (Brief) Extremity : Side: Bilateral Extremity: leg Extremity Finding: FOUND: edema (+2) Musculoskeletal (Brief) Musculoskeletal: FOUND: extremities move equally, NOT FOUND: deformity, loss of motion, spasm, tenderness Integumentary (Brief) Integumentary: FOUND: dry, warm Neurologic (Brief) Neurological: FOUND: cranial 2-12 intact, motor (Intact ) Psychiatric (Brief) Psychiatric: FOUND: alert, attentive, normal affect, oriented Laboratory Laboratory Laboratory Tests 03/02/17 16:15 03/03/17 05:48 03/04/17 04:40 Laboratory Tests 03/02/17 16:15 03/03/17 05:48 03/04/17 04:40 Assessment & Plan Problems: (1) Atrial fibrillation with RVR Status: Acute Assessment & Plan: 03/03 KISHA/Cardioversion (2) Dyspnea on exertion Status: Acute (3) Hyperglycemia Status: Resolved (4) Essential (primary) hypertension Status: Chronic (5) Osteoarthritis Status: Chronic Qualifiers: Osteoarthritis location: multiple joints Osteoarthritis type: primary Qualified Codes: M15.0 - Primary generalized (osteo)arthritis (6) Morbid obesity Status: Chronic Qualifiers: Obesity type: due to excess calories Qualified Codes: E66.01 - Morbid ( severe) obesity due to excess calories Plan/Intensity of Service Will D/C to home. Amiodarone 400mg BID for 7 days, then 200mg daily. Lasix 40mg BID for 7 days, then 40mg daily. Labetalol 200mg BID. Lisinopril 20 mg daily. Xarelto 20 mg with supper - samples given by Dr Zepeda. F/U with Dr Jamil in 1 week - check BMP and Mg at that time. F/U with Dr Ruvalcaba on 03/18 at 1410 for cardiac evaluation. May return to work on 03/08. Encourage low sodium (less than 2 gram) diet and fluids up to 2 quarts a day. See orders for details. Case discussed with nursing and Cardiology DVT Prophylaxis: Xarelto Code Status Full Code Hospital Course Summary Disclaimer The hospital course summary below is not to be considered part of the above Progress Note. Hospital Course Summary 03/[address] patient in outpatient observation status at [facility] CCU under the care of Dr. Elder. Initiate Cardizem drip to help with heart rate control. Start Lovenox 1 mg/kg subcutaneously b.i.d. for anticoagulation. Consult with Dr. Zepeda for cardiac evaluation and treatment options for his atrial fibrillation. Start Mucinex DM b.i.d. to help minimize cough and bronchial symptoms. Initiate Protonix 40 mg p.o. daily for GI protection as well as for his acid reflux. He may have Tums as needed. P.R.N. medications are okayed. Check TSH in light of fatigue and atrial fibrillation. Additionally will check liver enzymes for completeness. Recheck fasting BMP in a.m. to reassess blood sugar. Will also monitor his serum sodium. CBC will be rechecked in a.m. secondary to Lovenox use. The patient will be FULL CODE as per his request. Patient's care will be returned to Dr. Jamil at time of discharge from [facility]. 5/3 Doing well this afternoon. Tolerated KISHA/Cardioversion. No chest pain. Throat slightly sore from KISHA. Breathing well-not SOA, but not up much post cardioversion. No cough. Denies nausea or ab pain. Successful KISHA/Cardioversion - Amiodarone start to help maintain NSR. Xarelto started for anticoagulation - Lovenox stopped. Home ASA not restarted. Lasix initiated to help motivate fluids. Will continue monitoring on tele due to potential for arrhythmias due to amiodarone. 5/ Doing well. Breathing better-not having the cough like before presentation. No chest pressure or pain. Eating well. Not dizzy or unsteady when up. Will D/C to home. Amiodarone 400mg BID for 7 days, then 200mg daily. Lasix 40mg BID for 7 days, then 40mg daily. Labetalol 200mg BID. Lisinopril 20 mg daily. Xarelto 20 mg with supper - samples given by Dr Zepeda. F/U with Dr Jamil in 1 week - check BMP and Mg at that time. F/U with Dr Ruvalcaba on 03/18 at 1410 for cardiac evaluation. May return to work on 03/08. Encourage low sodium (less than 2 gram) diet and fluids up to 2 quarts a day. See orders for details. JUAN MIGUEL ELDER MD March 04, 2017 13:47
--- NOTE | 2017-03-04 14:08 | PD.WORK ---
Work Release DATE: 03/04/17 TIME: 14:06 Work Release Excused for: Mr Resendiz was hospitalized at [facility] from March 02 until March 04. He may return to work on Wednesday March 08, 2017. He will need outpatient follow up with his physicians the week of March 08 and on March 18. JUAN MIGUEL UPTON MD March 04, 2017 14:08
--- NOTE | 2017-03-04 14:45 | NUR ---
STATUS/DISCHARGE PT IS A&OX3. PT DENIES CP. VSS, WITH EXCEPTION PT REQUIRED FREQUENT REMINDERS TO KEEP PULSE OXIMETER IN PLACE. PT IS AMBULATORY WITHOUT ASSIST. PT FLUID AND NUTRITION INTAKE IS ADEQUATE. OUTPUT IS ADEQUATE POST LASIX ADMINISTRATION. REVIEWED DISCHARGE INSTRUCTIONS WITH PT, ANSWERING ALL QUESTIONS. PRESCRIPTION GIVEN FOR XARELTO ALONG WITH SAMPLES FROM DR. LU. REVIEWED AMIODARONE PRESCRIPTION CHANGES, DOSAGES AND DATES OF ADMINISTRATION. REVIEWED LASIX AND POTASSIUM PRESCRIPTION CHANGES, DOSAGES AND DATES. PT ACKNOWLEDGES UNDERSTANDING. DISCHARGE AND MEDICATION ORDERS PLACED IN APPROPRIATE TABS IN PT ADMISSION BINDER. RFA IV SITE DISCONTINUED, CATHETER INTACT, SITE IS ASYMPTOMATIC. PT AMBULATED TO ED ENTRANCE TO PERSONAL CAR, RN ACCOMPANIED TO ENTRANCE DOOR.
--- NOTE | 2017-03-04 15:26 | NUR ---
Pre-Diabetes Consult Patient D/C before seen by [facility]. Will attempt to contact for outpatient diabetes counseling. [facility] available @ 1406 Addendum: 03/04/17 at [address] Student charting reviewed by Pet Nutrition Specialist.
[2017-03-04] MEDS ORDERED: FUROSEMIDE 40 MG TABLET PO SCH (17:00)
--- NOTE | 2017-03-05 15:00 | NUR ---
CM NO VM
--- NOTE | 2017-03-06 11:01 | DSF ---
ADMISSION DIAGNOSIS Atrial fibrillation with rapid ventricular rate. DISCHARGE DIAGNOSIS Atrial fibrillation with rapid ventricular rate--converted to normal sinus rhythm. ASSOCIATED CONDITIONS AND COMPLICATIONS Dyspnea on exertion. Uncontrolled hypertension. Osteoarthritis. Hyperglycemia (present on admission)--resolved. Morbid obesity with BMI 60.7. Intermittent acid reflux. PROCEDURES KISHA/cardioversion. CONSULTS Dr. Zepeda--Cardiology. CLINICAL RESUME Mr. Resendiz is a 52-year-old gentleman who has been having shortness of breath with activities for the past week or so. He reports some recent cough and cold symptoms--his boss has been sick at work for the past couple of months with cough and cold and he feels he picked up some symptoms from him. With his cough at times he will produce green sputum which is hard to clear. He is not having pain with breathing or chest wall discomfort from his cough. He has not been having fevers or chills. Denies palpitations. Appetite has been stable. He had to miss work earlier this week secondary to his shortness of air and fatigue. Today he presents to clinic for evaluation. In clinic blood pressure is quite elevated and heart rate was rapid. He was sent to [facility] for further evaluation. In the emergency room EKG did reveal atrial fibrillation. Heart rate was 155. He was given IV Cardizem 20 mg which did help slow his heart rate down to 110s. Heart rate started to escalate again so he was given 25 mg of Cardizem. Chest x-ray was obtained showing no pneumonia but enlarged cardiac silhouette was present. In light of his new-onset atrial fibrillation, Dr. Elder was notified and patient was subsequently placed in outpatient observation status at [facility] CCU for further evaluation and treatment. For complete details of the H&P, refer to that document. LABORATORY White blood count is 8.2, with hemoglobin 14.0, hematocrit 43.1, MCV 95.6, and platelets 258,000. Serum sodium is 145, potassium 4.3, chloride 106, CO2 26, BUN 15, with creatinine 0.8, GFR 101, and blood glucose 130. Troponin I is 0.013. Pro-BNP is 1270. INR is 1.12. Liver enzymes are unremarkable other than slight elevation of total bilirubin at 1.60. TSH is normal at 2.90. HOSPITAL COURSE Patient was placed in outpatient observation status at [facility] under the care of Dr. Elder. He was initiated on Cardizem drip to help with heart rate control. Lovenox was started at 1 mg/kg subcutaneous b.i.d. for anticoagulation. In light of his cough, Mucinex DM was provided b.i.d. We started Protonix 40 mg daily to help with his acid reflux, having Tums available as needed. Dr. Zepeda was consulted for cardiac evaluation of his atrial fibrillation. He was made FULL CODE at time of presentation. Overall his hospital course was one of good improvement. Dr. Zepeda did evaluate patient. He recommended KISHA/cardioversion. Risk versus benefit versus alternative therapy to KISHA/cardioversion was discussed with the patient and informed consent was obtained. He was able to undergo cardioversion on 03/03/2017, which he tolerated well. Following cardioversion Xarelto was started for anticoagulation--Lovenox was therefore stopped. His home aspirin was not continued. Additionally Dr. Zepeda started amiodarone to help maintain normal sinus rhythm. Lasix was initiated IV to help motivate fluid. Blood pressure was monitored and we saw some elevation so lisinopril was also added. Labetalol was initiated to help with heart rate and rhythm control. Due to initiation of amiodarone on 03/03/2017, we did feel it would be prudent to continue monitoring for potential proarrhythmic development due to amiodarone. He was continued in CCU for monitoring. The next day met with good success. Blood pressure was showing gradual improvements. Breathing was making good gains. Hemoglobin was stable. Blood counts were stable. He was eating, drinking, and ambulating well. In light of his significant improvement, he was able to be discharged to home. NARRATIVE DISCLAIMER: Above narrative is a brief summary of patient's hospitalization. For complete details of the H&P refer to the medical record. DISCHARGE CONDITION Stable/good. DIET Low sodium. ACTIVITIES As tolerated. May return to work on 03/08/2017. MEDICATIONS Amiodarone 200 mg p.o. b.i.d. for seven days, then decrease to 200 mg daily. Furosemide 40 mg b.i.d. for seven days, then decrease to 40 mg daily. Potassium 20 mEq b.i.d. for seven days, then decrease to daily. Xarelto 20 mg with supper. Lisinopril 20 mg daily. Labetalol 200 mg b.i.d. Mucinex DM b.i.d. p.r.n. cough/congestion. Stop aspirin. Stop Aleve. May use Tylenol for pain. FOLLOWUP Patient will follow with Dr. Jamil in one week. Recommend recheck BMP and magnesium at that time secondary to medication use. Patient will follow with Dr. Zepeda on March 18 for cardiac reevaluation. INSTRUCTIONS TO PATIENT Patient was instructed on his diagnoses and treatments provided. He received informed consent prior to KISHA/ cardioversion. He was encouraged on a healthy, well-rounded diet and activities. He will watch for bleeding and bruising with anticoagulation use. He will watch for orthostasis secondary to antihypertensives. Should these or other problems or need occur, he can be in contact with his primary provider or with Dr. Zepeda. If symptoms become quite dire, he can present to emergency room for acute evaluation. He voiced understanding of the above. Time spent with discharge greater than 35 minutes. MTDD
--- NOTE | 2017-03-08 16:26 | NUR ---
CM NO VM
--- NOTE | 2017-03-09 14:33 | NUR ---
CM UNABLE TO LVM
[2017-03-11] MEDS ORDERED: FUROSEMIDE 40 MG TABLET PO SCH (09:00)
== END 2017-03-04 14:45 | disposition home or self-care (01) ==
LOC: ED 15:59 → EDHOLD 17:07 → CCU 17:42
PROVIDERS: ADMIT Hospitalist; ATTEND Hospitalist
DX: I48.91 Unspecified atrial fibrillation (principal); R06.09 Other forms of dyspnea; R73.9 Hyperglycemia, unspecified; I10 Essential (primary) hypertension; M15.0 Primary generalized (osteo)arthritis; E66.01 Morbid (severe) obesity due to excess calories; Z68.44 Body mass index [BMI] 60.0-69.9, adult; E87.0 Hyperosmolality and hypernatremia; K21.9 Gastro-esophageal reflux disease without esophagitis; Z79.82 Long term (current) use of aspirin; Z79.1 Long term (current) use of non-steroidal anti-inflammatories (NSAID)
CPT/HCPCS: 36415; 71010; 80048; 80076; 83735; 83880; 84443; 84484; 85025; 85610; 93005; 93306; 93312; 93325; 96361; 96365; 96366; 96372; 96375; 96376; 99218; 99285; J0282; J0360; J1650; J1940; J2250; J3010; J7030; J7050